=== PATIENT | female | born 1945 | race Caucasian/White ===

== ENCOUNTER → 2017-07-21 | Outpatient (CLI) | payer MEDICARE, OTHER ==
[~2017-07-21] MED LIST: AMIT25 PO; ASPI81CH PO; BENZ100A PO; CALCAVITD PO; CELE100 PO; CHOL10002; CLOP75 PO; CRAN-MAX500 MG PO; CYAN1000 PO; CYCL10 PO; DOCU100 PO; DULO30 PO; DULO60; DULO60 PO; Desyrel50 MG; FAMO20 PO; FERR325 PO; FURO40 PO; GABA300 PO; GABA600 PO; GUAI600T33 PO; HYDACE5 PO; IRON SULFATE PO; LEVFLO500 PO; LEVSOD50 PO; METO25ER PO; MULVITB&C PO; NITR.4SL SL; NITR100CA PO; NYST100SU MT; OMEP20ER PO; OMEP40CA12 PO; PONARIS; POTA10T PO; POTASSIUM GLUCONATE; POTCHL20ER PO; RAMI5 PO; RANI150 PO; SIMV40 PO; TEMA15 PO; TORSE20 PO; TRAZ50 PO; VENL75ER PO; Vitamin C100 M1 PO; Vitamin C1000 M1 PO; [UNRECOGNIZED DRUG - CODE] PO
== END | disposition home or self-care (01) ==
LOC: LAB 14:37
DX: L03.116 Cellulitis of left lower limb (principal)
CPT/HCPCS: 87070; 87077; 87147; 87186; 87205

== ENCOUNTER → 2017-08-19 | Outpatient (CLI) | payer MEDICARE, OTHER | END | disposition home or self-care (01) | LOC: LAB 11:06 → LAB SHORT 11:06 | DX: L03.116 Cellulitis of left lower limb (principal) | CPT/HCPCS: 87070; 87077; 87147; 87186; 87205 ==

== ENCOUNTER → 2017-09-10 | Outpatient (CLI) | payer MEDICARE, OTHER ==
[2017-09-10 13:58] LABS: Source, Urine Clean Catch
[2017-09-10 14:38] LABS: Bilirubin, Urine Neg (Neg); Blood, Urine 2+ (Neg); Glucose Qualitative, Urine Neg (Neg); Ketones, Urine Neg (Neg); Leukocyte Esterase, Urine 3+ (Neg); Nitrite, Urine Neg (Neg); Protein, Urine Neg (Neg); Urobilinogen, Urine NORM (Normal)
[2017-09-10 14:50] LABS: Appearance, Urine Clear (Clear); Bacteria Not Seen /hpf; Squamous Epithelial Cells Not Seen /hpf (Few)
== END | disposition home or self-care (01) ==
LOC: LAB 13:32 → LAB FUT 09-09 17:40 → EDSTATUS 09-09 17:40
PROVIDERS: Obstetrics & Gynecology Female Pelvic Medicine and Reconstructive Surgery
DX: N39.0 Urinary tract infection, site not specified (principal); R30.0 Dysuria
CPT/HCPCS: 81015

== ENCOUNTER → 2017-10-13 | Outpatient (CLI) | payer MEDICARE, OTHER | END | disposition home or self-care (01) | LOC: LAB SHORT 11:36 → LAB 11:36 | DX: L03.116 Cellulitis of left lower limb (principal) | CPT/HCPCS: 87070; 87077; 87147; 87186; 87205 ==

== ENCOUNTER → 2017-10-27 | Outpatient (CLI) | payer MEDICARE, OTHER | END | disposition home or self-care (01) | LOC: LAB SHORT 10:15 → LAB 10:15 → LAB FUT 10-27 11:00 → EDSTATUS 10-27 11:00 | DX: L03.116 Cellulitis of left lower limb (principal) | CPT/HCPCS: 87070; 87077; 87186; 87205 ==

== ENCOUNTER 2017-11-01 12:30 | Day surgery (SDC) | payer MEDICARE, OTHER | END 2017-11-01 15:15 | disposition home or self-care (01) | LOC: WOUND 12:30 | PROC: 0HBLXZZ Excision of Left Lower Leg Skin, External Approach (ICD-10-PCS; principal; 2017-11-01) | DX: L97.822 Non-pressure chronic ulcer of other part of left lower leg with fat layer exposed (principal); I87.2 Venous insufficiency (chronic) (peripheral); N28.9 Disorder of kidney and ureter, unspecified; D50.9 Iron deficiency anemia, unspecified; I11.0 Hypertensive heart disease with heart failure; I50.9 Heart failure, unspecified; R60.0 Localized edema | CPT/HCPCS: G0463 ==

== ENCOUNTER 2017-11-08 13:00 | Day surgery (SDC) | payer MEDICARE, OTHER | END 2017-11-08 16:01 | disposition home or self-care (01) | LOC: WOUND 13:00 | DX: Z48.00 Encounter for change or removal of nonsurgical wound dressing (principal); L97.819 Non-pressure chronic ulcer of other part of right lower leg with unspecified severity; I87.2 Venous insufficiency (chronic) (peripheral); I83.009 Varicose veins of unspecified lower extremity with ulcer of unspecified site; N28.9 Disorder of kidney and ureter, unspecified; D50.9 Iron deficiency anemia, unspecified; I50.9 Heart failure, unspecified; G60.9 Hereditary and idiopathic neuropathy, unspecified; R60.0 Localized edema | CPT/HCPCS: G0463 ==

== ENCOUNTER 2017-11-15 14:00 | Day surgery (SDC) | payer MEDICARE, OTHER | END 2017-11-15 16:45 | disposition home or self-care (01) | LOC: WOUND 14:00 | DX: I83.028 Varicose veins of left lower extremity with ulcer other part of lower leg (principal); L97.822 Non-pressure chronic ulcer of other part of left lower leg with fat layer exposed; I87.2 Venous insufficiency (chronic) (peripheral); N28.9 Disorder of kidney and ureter, unspecified; D50.9 Iron deficiency anemia, unspecified; I11.0 Hypertensive heart disease with heart failure; I50.9 Heart failure, unspecified; G60.9 Hereditary and idiopathic neuropathy, unspecified; R60.0 Localized edema; I70.209 Unspecified atherosclerosis of native arteries of extremities, unspecified extremity; L08.9 Local infection of the skin and subcutaneous tissue, unspecified; B96.5 Pseudomonas (aeruginosa) (mallei) (pseudomallei) as the cause of diseases classified elsewhere | CPT/HCPCS: G0463 ==

== ENCOUNTER → 2018-01-13 | Outpatient (CLI) | payer MEDICARE, OTHER | LOC: LAB SHORT 08:00 → LAB 08:00 | DX: L03.116 Cellulitis of left lower limb (principal) | CPT/HCPCS: 87070; 87075; 87077; 87147; 87186; 87205 ==

== ENCOUNTER 2018-01-27 07:30 | Day surgery (SDC) | payer MEDICARE, OTHER | END 2018-01-27 09:50 | disposition home or self-care (01) | LOC: WOUND | DX: L97.822 Non-pressure chronic ulcer of other part of left lower leg with fat layer exposed (principal); I87.2 Venous insufficiency (chronic) (peripheral); M81.0 Age-related osteoporosis without current pathological fracture; E78.5 Hyperlipidemia, unspecified; I50.32 Chronic diastolic (congestive) heart failure | CPT/HCPCS: 87070; 87075; 87205; G0463 ==

== ENCOUNTER 2018-01-28 08:00 | Day surgery (SDC) | payer MEDICARE, OTHER | END 2018-01-28 09:55 | disposition home health service (06) | LOC: WOUND 08:00 | DX: L97.522 Non-pressure chronic ulcer of other part of left foot with fat layer exposed (principal); I87.2 Venous insufficiency (chronic) (peripheral); L92.8 Other granulomatous disorders of the skin and subcutaneous tissue; M21.42 Flat foot [pes planus] (acquired), left foot; M21.6X2 Other acquired deformities of left foot; M81.0 Age-related osteoporosis without current pathological fracture; E78.5 Hyperlipidemia, unspecified; I50.32 Chronic diastolic (congestive) heart failure | CPT/HCPCS: G0463 ==

== ENCOUNTER 2018-02-03 00:02 | Day surgery (SDC) | payer MEDICARE, OTHER | END 2018-02-03 22:44 | disposition home or self-care (01) | LOC: WOUND 00:02 | DX: L97.522 Non-pressure chronic ulcer of other part of left foot with fat layer exposed (principal); I87.2 Venous insufficiency (chronic) (peripheral); M21.6X2 Other acquired deformities of left foot | CPT/HCPCS: G0463 ==

== ENCOUNTER 2018-02-09 | Day surgery (SDC) | payer MEDICARE, OTHER | END 2018-02-09 22:42 | disposition home or self-care (01) | LOC: WOUND | PROC: 0HBLXZZ Excision of Left Lower Leg Skin, External Approach (ICD-10-PCS; principal; 2018-02-09) | DX: I87.2 Venous insufficiency (chronic) (peripheral) (principal); L97.822 Non-pressure chronic ulcer of other part of left lower leg with fat layer exposed; M21.42 Flat foot [pes planus] (acquired), left foot; M21.6X2 Other acquired deformities of left foot; M81.0 Age-related osteoporosis without current pathological fracture; E78.5 Hyperlipidemia, unspecified; I50.32 Chronic diastolic (congestive) heart failure ==

== ENCOUNTER 2018-04-28 00:14 | Day surgery (SDC) | payer MEDICARE, OTHER | END 2018-04-28 22:44 | disposition home or self-care (01) | LOC: WOUND 00:14 | DX: L97.822 Non-pressure chronic ulcer of other part of left lower leg with fat layer exposed (principal); I87.2 Venous insufficiency (chronic) (peripheral) | CPT/HCPCS: G0463 ==

== ENCOUNTER 2018-05-05 08:45 | Day surgery (SDC) | payer MEDICARE, OTHER | END 2018-05-05 23:06 | disposition home or self-care (01) | LOC: WOUND 08:45 | DX: L97.822 Non-pressure chronic ulcer of other part of left lower leg with fat layer exposed (principal); I87.2 Venous insufficiency (chronic) (peripheral) | CPT/HCPCS: G0463 ==

== ENCOUNTER 2018-05-12 08:17 | Day surgery (SDC) | payer MEDICARE, OTHER | END 2018-05-12 22:46 | disposition home or self-care (01) | LOC: WOUND 08:17 | DX: L97.822 Non-pressure chronic ulcer of other part of left lower leg with fat layer exposed (principal); I87.2 Venous insufficiency (chronic) (peripheral) ==

== ENCOUNTER 2018-05-19 08:21 | Day surgery (SDC) | payer MEDICARE, OTHER | END 2018-05-19 22:45 | disposition home or self-care (01) | LOC: WOUND 08:21 | DX: L97.522 Non-pressure chronic ulcer of other part of left foot with fat layer exposed (principal); I87.2 Venous insufficiency (chronic) (peripheral) | CPT/HCPCS: G0463 ==

== ENCOUNTER 2018-05-26 00:28 | Day surgery (SDC) | payer MEDICARE, OTHER | END 2018-05-26 23:56 | disposition home or self-care (01) | LOC: WOUND 00:28 | PROC: 0HBLXZZ Excision of Left Lower Leg Skin, External Approach (ICD-10-PCS; principal; 2018-05-26) | DX: L97.822 Non-pressure chronic ulcer of other part of left lower leg with fat layer exposed (principal); I87.2 Venous insufficiency (chronic) (peripheral) ==

== ENCOUNTER 2018-06-02 08:45 | Day surgery (SDC) | payer MEDICARE, OTHER | END 2018-06-02 22:50 | disposition home or self-care (01) | LOC: WOUND 08:45 | DX: L97.822 Non-pressure chronic ulcer of other part of left lower leg with fat layer exposed (principal); I87.2 Venous insufficiency (chronic) (peripheral) | CPT/HCPCS: G0463 ==

== ENCOUNTER 2018-06-16 08:22 | Day surgery (SDC) | payer MEDICARE, OTHER | END 2018-06-16 22:47 | disposition home or self-care (01) | LOC: WOUND 08:22 | DX: I83.025 Varicose veins of left lower extremity with ulcer other part of foot (principal); L97.522 Non-pressure chronic ulcer of other part of left foot with fat layer exposed; I87.2 Venous insufficiency (chronic) (peripheral); M21.42 Flat foot [pes planus] (acquired), left foot; M21.6X2 Other acquired deformities of left foot; M81.0 Age-related osteoporosis without current pathological fracture; E78.5 Hyperlipidemia, unspecified; I50.32 Chronic diastolic (congestive) heart failure ==

== ENCOUNTER 2018-06-23 00:27 | Day surgery (SDC) | payer MEDICARE, OTHER | END 2018-06-23 22:44 | disposition home health service (06) | LOC: WOUND 00:27 | DX: I83.025 Varicose veins of left lower extremity with ulcer other part of foot (principal); L97.522 Non-pressure chronic ulcer of other part of left foot with fat layer exposed; I83.91 Asymptomatic varicose veins of right lower extremity; M21.42 Flat foot [pes planus] (acquired), left foot; M21.6X2 Other acquired deformities of left foot; M81.0 Age-related osteoporosis without current pathological fracture; E78.5 Hyperlipidemia, unspecified; I50.32 Chronic diastolic (congestive) heart failure ==

== ENCOUNTER 2018-06-30 00:12 | Day surgery (SDC) | payer MEDICARE, OTHER | END 2018-06-30 22:35 | disposition home or self-care (01) | LOC: WOUND 00:12 | DX: L97.822 Non-pressure chronic ulcer of other part of left lower leg with fat layer exposed (principal); I87.2 Venous insufficiency (chronic) (peripheral) ==

== ENCOUNTER 2018-07-21 00:30 | Day surgery (SDC) | payer MEDICARE, OTHER | END 2018-07-21 12:00 | disposition home or self-care (01) | LOC: WOUND 00:30 | DX: I83.028 Varicose veins of left lower extremity with ulcer other part of lower leg (principal); L97.822 Non-pressure chronic ulcer of other part of left lower leg with fat layer exposed; I87.2 Venous insufficiency (chronic) (peripheral); I50.9 Heart failure, unspecified; I73.9 Peripheral vascular disease, unspecified; D64.9 Anemia, unspecified; M19.90 Unspecified osteoarthritis, unspecified site ==

== ENCOUNTER 2018-07-28 00:38 | Day surgery (SDC) | payer MEDICARE, OTHER | END 2018-07-28 12:00 | disposition home or self-care (01) | LOC: WOUND 00:38 | DX: L97.822 Non-pressure chronic ulcer of other part of left lower leg with fat layer exposed (principal); I87.2 Venous insufficiency (chronic) (peripheral); I50.32 Chronic diastolic (congestive) heart failure; E78.5 Hyperlipidemia, unspecified ==

== ENCOUNTER 2018-08-04 00:07 | Day surgery (SDC) | payer MEDICARE, OTHER | END 2018-08-04 22:58 | disposition home or self-care (01) | LOC: WOUND 00:07 | DX: I87.2 Venous insufficiency (chronic) (peripheral) (principal); L97.822 Non-pressure chronic ulcer of other part of left lower leg with fat layer exposed; I73.9 Peripheral vascular disease, unspecified; D64.9 Anemia, unspecified; I50.9 Heart failure, unspecified; M19.90 Unspecified osteoarthritis, unspecified site | CPT/HCPCS: G0463 ==

== ENCOUNTER 2018-08-11 01:06 | Day surgery (SDC) | payer MEDICARE, OTHER | END 2018-08-11 22:45 | disposition home or self-care (01) | LOC: WOUND 01:06 | DX: I83.028 Varicose veins of left lower extremity with ulcer other part of lower leg (principal); L97.822 Non-pressure chronic ulcer of other part of left lower leg with fat layer exposed; D64.9 Anemia, unspecified; I73.9 Peripheral vascular disease, unspecified; M19.90 Unspecified osteoarthritis, unspecified site; F41.9 Anxiety disorder, unspecified; I50.32 Chronic diastolic (congestive) heart failure; E78.5 Hyperlipidemia, unspecified; M21.6X2 Other acquired deformities of left foot; M21.42 Flat foot [pes planus] (acquired), left foot | CPT/HCPCS: Q4196 ==

== ENCOUNTER 2018-08-18 08:45 | Day surgery (SDC) | payer MEDICARE, OTHER | END 2018-08-18 23:09 | disposition home or self-care (01) | LOC: WOUND 08:45 | DX: I87.2 Venous insufficiency (chronic) (peripheral) (principal); L97.822 Non-pressure chronic ulcer of other part of left lower leg with fat layer exposed; D64.9 Anemia, unspecified; I50.9 Heart failure, unspecified; I73.9 Peripheral vascular disease, unspecified; M19.90 Unspecified osteoarthritis, unspecified site | CPT/HCPCS: Q4196 ==

== ENCOUNTER 2018-08-25 08:00 | Day surgery (SDC) | payer MEDICARE, OTHER | END 2018-08-25 22:43 | disposition home or self-care (01) | LOC: WOUND 08:00 | DX: I87.2 Venous insufficiency (chronic) (peripheral) (principal); L97.822 Non-pressure chronic ulcer of other part of left lower leg with fat layer exposed; I50.32 Chronic diastolic (congestive) heart failure; D64.9 Anemia, unspecified; E78.5 Hyperlipidemia, unspecified; M19.90 Unspecified osteoarthritis, unspecified site ==

== ENCOUNTER 2018-08-31 09:05 | Day surgery (SDC) | payer MEDICARE, OTHER ==
[~2018-08-31] VITALS: Ht 170.2 cm; Wt 77.0 kg
--- NOTE | 2018-08-31 09:54 | NUR ---
PT BROUGHT BACK TO EXAM ROOM FOR EVALUATION. VITAL SIGNS TAKEN. DR HICKMAN MADE AWARE PT HAS BEEN WITH FEVER AND VOMITING SINCE WEDNESDAY. TEMP TODAY IS 99.7 DEGREES. 115-108 HR. PT REPORTS INCREASED COUGHING THE PAST FEW DAYS. PER DR HICKMAN VERBAL ORDERS, IV STARTED, NORMAL SALINE 500CC IV BOLUS STARTED. WE WILL PREP PATIENT FOR SCLEROTHERAPY OF L LEG ONLY TODAY. CONTINOUS CARDIAC MONITORING IN PLACE.
--- NOTE | 2018-08-31 12:15 | NUR ---
PT DENIES NEEDS. L LEG WRAPPED WITH KERLEX AND COBAN AND PRESSURE STOCKING APPLIED. TOLERATES WELL. VSS. NADN. PT DRESSES SELF. IV DC'D. CATH INTACT. PRESSURE DSG IN PLACE. NO BLEEDING NOTED. PT AMBULATES WITH WALKER TO RESTROOM AND BACK WITHOUT DIFF. PT ESCORTED OUT BY ESCORT/ WC.
== END 2018-08-31 12:10 | disposition home or self-care (01) ==
LOC: MHTC 09:05
DX: I87.2 Venous insufficiency (chronic) (peripheral) (principal); I83.029 Varicose veins of left lower extremity with ulcer of unspecified site; L97.929 Non-pressure chronic ulcer of unspecified part of left lower leg with unspecified severity; Z88.5 Allergy status to narcotic agent; Z88.8 Allergy status to other drugs, medicaments and biological substances; Z88.1 Allergy status to other antibiotic agents; Z91.040 Latex allergy status; Z91.018 Allergy to other foods; Z79.899 Other long term (current) drug therapy
CPT/HCPCS: 36466; 99152; 99153; J3010; J7040

== ENCOUNTER 2018-09-01 08:45 | Day surgery (SDC) | payer MEDICARE, OTHER | END 2018-09-01 22:55 | disposition home or self-care (01) | LOC: WOUND 08:45 | DX: I87.2 Venous insufficiency (chronic) (peripheral) (principal); L97.822 Non-pressure chronic ulcer of other part of left lower leg with fat layer exposed; L97.522 Non-pressure chronic ulcer of other part of left foot with fat layer exposed; I50.32 Chronic diastolic (congestive) heart failure; K21.9 Gastro-esophageal reflux disease without esophagitis; E78.5 Hyperlipidemia, unspecified; D64.9 Anemia, unspecified | CPT/HCPCS: G0463 ==

== ENCOUNTER 2018-09-08 08:45 | Day surgery (SDC) | payer MEDICARE, OTHER | END 2018-09-08 22:42 | disposition home or self-care (01) | LOC: WOUND 08:45 | DX: I87.2 Venous insufficiency (chronic) (peripheral) (principal); L97.821 Non-pressure chronic ulcer of other part of left lower leg limited to breakdown of skin; L97.522 Non-pressure chronic ulcer of other part of left foot with fat layer exposed; I50.32 Chronic diastolic (congestive) heart failure; E78.5 Hyperlipidemia, unspecified; D64.9 Anemia, unspecified; M19.90 Unspecified osteoarthritis, unspecified site | CPT/HCPCS: Q4196 ==

== ENCOUNTER 2018-09-14 08:51 | Day surgery (SDC) | payer MEDICARE, OTHER ==
[~2018-09-14] VITALS: Ht 170.2 cm; Wt 77.0 kg
[2018-09-14] MEDS ORDERED: TRIM100 PO (09:38)
[2018-09-14] MEDS ORDERED: CELE200 PO (09:39)
[2018-09-14] MEDS ORDERED: VENL150ER PO (09:45)
--- NOTE | 2018-09-14 10:09 | NUR ---
CALL LIGHT IN REACH.
--- NOTE | 2018-09-14 11:28 | NUR ---
PT TOLERATED PHELBECTOMY TO RLE WELL SCLEROTHERAPY BILAT LE WELL.
--- NOTE | 2018-09-14 11:38 | NUR ---
PT'S RLE AND LLE WRAPPED WITH GAUZE, COBAN TO THIGH-HIGH. KNEE-HIGH COMPRESSION STOCKING PLACED ON RLE. PABLO HOSE PLACED ON LLE. FULL REPORT PROVIDED TO NOHEMY KERR TO ASSUME CARE OF PT.
--- NOTE | 2018-09-14 12:19 | NUR ---
PT VERBALIZED UNDERSTANDING OF D/C INSTRUCTIONS. IV REMOVED FROM RAC WITH CATH INTACT. PRESSURE DRESSING APPLIED. BILATERAL LE WRAPPED AND STALKINGS APPLIED. PT AMBULATES TO RESTROOM WITH STEADY GAIT USING HER FWW. ARRIVES TO DRIVE PT HOME, DISPO PAPERWORK PROVIDED IN [facility] FOL[facility]. PT TAKEN OUT TO PRIVATE VEHICLE VIA W/C WITH WING.
== END 2018-09-15 22:42 | disposition home or self-care (01) ==
LOC: MHTC 08:51
DX: I87.2 Venous insufficiency (chronic) (peripheral) (principal); Z88.5 Allergy status to narcotic agent; Z91.018 Allergy to other foods; Z88.8 Allergy status to other drugs, medicaments and biological substances; Z91.040 Latex allergy status; Z88.1 Allergy status to other antibiotic agents; Z79.899 Other long term (current) drug therapy
CPT/HCPCS: 36466; 37765; 99152; 99153; J1644; J2250; J3010; J7030; J7040

== ENCOUNTER 2018-09-22 00:20 | Day surgery (SDC) | payer MEDICARE, OTHER ==
[~2018-09-22 00:20] MED LIST changes: +CELE200 PO; +TRIM100 PO; +VENL150ER PO
== END 2018-09-22 22:41 | disposition home or self-care (01) ==
LOC: WOUND 00:20
DX: L97.822 Non-pressure chronic ulcer of other part of left lower leg with fat layer exposed (principal); L97.522 Non-pressure chronic ulcer of other part of left foot with fat layer exposed; I87.2 Venous insufficiency (chronic) (peripheral); I73.9 Peripheral vascular disease, unspecified; I50.9 Heart failure, unspecified; D64.9 Anemia, unspecified
CPT/HCPCS: Q4196

== ENCOUNTER 2018-09-29 00:38 | Day surgery (SDC) | payer MEDICARE, OTHER | END 2018-09-29 22:55 | disposition home or self-care (01) | LOC: WOUND 00:38 | DX: L97.822 Non-pressure chronic ulcer of other part of left lower leg with fat layer exposed (principal); L97.522 Non-pressure chronic ulcer of other part of left foot with fat layer exposed; I87.2 Venous insufficiency (chronic) (peripheral); I50.32 Chronic diastolic (congestive) heart failure; K21.9 Gastro-esophageal reflux disease without esophagitis; F32.9 Major depressive disorder, single episode, unspecified; E78.5 Hyperlipidemia, unspecified; M81.0 Age-related osteoporosis without current pathological fracture; D64.9 Anemia, unspecified | CPT/HCPCS: Q4196 ==

== ENCOUNTER 2018-10-06 08:45 | Day surgery (SDC) | payer MEDICARE, OTHER | END 2018-10-06 22:46 | disposition home or self-care (01) | LOC: WOUND 08:45 | DX: L97.821 Non-pressure chronic ulcer of other part of left lower leg limited to breakdown of skin (principal); I87.2 Venous insufficiency (chronic) (peripheral); I73.9 Peripheral vascular disease, unspecified; I50.32 Chronic diastolic (congestive) heart failure; E78.5 Hyperlipidemia, unspecified; D64.9 Anemia, unspecified; M21.42 Flat foot [pes planus] (acquired), left foot; M21.6X2 Other acquired deformities of left foot; M81.0 Age-related osteoporosis without current pathological fracture ==

== ENCOUNTER 2018-10-13 08:30 | Day surgery (SDC) | payer MEDICARE, OTHER | END 2018-10-13 22:38 | disposition home or self-care (01) | LOC: WOUND 08:30 | DX: L97.829 Non-pressure chronic ulcer of other part of left lower leg with unspecified severity (principal); L97.522 Non-pressure chronic ulcer of other part of left foot with fat layer exposed; I87.2 Venous insufficiency (chronic) (peripheral); M19.90 Unspecified osteoarthritis, unspecified site | CPT/HCPCS: G0463 ==

== ENCOUNTER 2018-10-20 08:45 | Day surgery (SDC) | payer MEDICARE, OTHER | END 2018-10-20 23:21 | disposition home or self-care (01) | LOC: WOUND 08:45 | DX: L97.521 Non-pressure chronic ulcer of other part of left foot limited to breakdown of skin (principal); I87.2 Venous insufficiency (chronic) (peripheral); I73.9 Peripheral vascular disease, unspecified; M19.90 Unspecified osteoarthritis, unspecified site ==

== ENCOUNTER 2018-10-27 08:45 | Day surgery (SDC) | payer MEDICARE, OTHER | END 2018-10-27 22:43 | disposition home or self-care (01) | LOC: WOUND 08:45 | DX: L97.522 Non-pressure chronic ulcer of other part of left foot with fat layer exposed (principal); I87.2 Venous insufficiency (chronic) (peripheral); I73.9 Peripheral vascular disease, unspecified; I50.32 Chronic diastolic (congestive) heart failure; D64.9 Anemia, unspecified; E78.5 Hyperlipidemia, unspecified | CPT/HCPCS: G0463 ==

== ENCOUNTER 2018-11-03 08:45 | Day surgery (SDC) | payer MEDICARE, OTHER | END 2018-11-03 23:03 | disposition home or self-care (01) | LOC: WOUND 08:45 | DX: L97.522 Non-pressure chronic ulcer of other part of left foot with fat layer exposed (principal); L97.829 Non-pressure chronic ulcer of other part of left lower leg with unspecified severity; I73.9 Peripheral vascular disease, unspecified; I87.2 Venous insufficiency (chronic) (peripheral); I50.9 Heart failure, unspecified; D64.9 Anemia, unspecified | CPT/HCPCS: G0463 ==

== ENCOUNTER 2018-11-17 08:45 | Day surgery (SDC) | payer MEDICARE, OTHER | END 2018-11-17 22:52 | disposition home or self-care (01) | LOC: WOUND 08:45 | DX: I83.028 Varicose veins of left lower extremity with ulcer other part of lower leg (principal); L97.821 Non-pressure chronic ulcer of other part of left lower leg limited to breakdown of skin; I87.2 Venous insufficiency (chronic) (peripheral); Z48.00 Encounter for change or removal of nonsurgical wound dressing | CPT/HCPCS: G0463 ==

== ENCOUNTER 2018-11-24 00:15 | Day surgery (SDC) | payer MEDICARE, OTHER | END 2018-11-24 22:49 | disposition home or self-care (01) | LOC: WOUND 00:15 | DX: L97.522 Non-pressure chronic ulcer of other part of left foot with fat layer exposed (principal); L97.919 Non-pressure chronic ulcer of unspecified part of right lower leg with unspecified severity; I73.9 Peripheral vascular disease, unspecified; I87.2 Venous insufficiency (chronic) (peripheral); I50.9 Heart failure, unspecified; D64.9 Anemia, unspecified | CPT/HCPCS: G0463 ==

== ENCOUNTER 2018-11-29 11:50 | Day surgery (SDC) | payer MEDICARE, OTHER ==
[~2018-11-29] VITALS: Ht 170.2 cm; Wt 76.4 kg
[2018-11-29] MEDS ORDERED: SSKI1 GM/1 ML PO (12:48)
== END 2018-11-29 22:43 | disposition home or self-care (01) ==
LOC: MHTC 11:50
PROC: 3E033TZ Introduction of Destructive Agent into Peripheral Vein, Percutaneous Approach (ICD-10-PCS; principal; 2018-11-29)
PROC: 06DY3ZZ Extraction of Lower Vein, Percutaneous Approach (ICD-10-PCS; principal; 2018-11-29)
DX: I87.2 Venous insufficiency (chronic) (peripheral) (principal)
CPT/HCPCS: 36471; 99152; J1644; J2250; J3010; J7040

== ENCOUNTER 2018-12-08 00:04 | Day surgery (SDC) | payer MEDICARE, OTHER ==
[~2018-12-08 00:04] MED LIST changes: +SSKI1 GM/1 ML PO
== END 2018-12-08 22:41 | disposition home or self-care (01) ==
LOC: WOUND 00:04
DX: L97.522 Non-pressure chronic ulcer of other part of left foot with fat layer exposed (principal); I87.2 Venous insufficiency (chronic) (peripheral)
CPT/HCPCS: G0463

== ENCOUNTER 2018-12-22 08:29 | Day surgery (SDC) | payer MEDICARE, OTHER | END 2018-12-22 23:10 | disposition home or self-care (01) | LOC: WOUND 08:29 | DX: L97.522 Non-pressure chronic ulcer of other part of left foot with fat layer exposed (principal); I87.2 Venous insufficiency (chronic) (peripheral) | CPT/HCPCS: G0463 ==

== ENCOUNTER 2019-03-19 13:28 | Inpatient (IN) | payer MEDICARE, OTHER ==
[~2019-03-19] VITALS: Ht 170.2 cm; Wt 71.1 kg
[~2019-03-19 13:28] MED LIST changes: +ASCO500 PO; -Vitamin C1000 M1 PO
[2019-03-19] MEDS ORDERED: FERRO-TIME325 MG PO (14:19)
[2019-03-19] MEDS ORDERED: URIBEL CAPSULE1 EACH PO (14:19)
[2019-03-19] MEDS ORDERED: GABA300 PO (14:20)
[2019-03-19] MEDS ORDERED: Potassium Chlo20 ME1 PO (14:20)
[2019-03-19] MEDS ORDERED: VENLAFAXINE HCL75 MG PO (14:21)
[2019-03-19] MEDS ORDERED: Synthroid88 MCG PO (14:22)
[2019-03-19] MEDS ORDERED: Fish Oil 10001000 MG PO (14:22)
[2019-03-19] MEDS ORDERED: FURO40 PO (14:23)
[2019-03-19] MEDS ORDERED: Cyclobenzaprine5 MG PO (14:24)
[2019-03-19 14:41] LABS: BASOPHILS ABSOLUTE AUTO 0.04 K/mm3 (0.00-0.23); BASOPHILS PERCENT AUTO 1 % (0-2); EOSINOPHILS ABSOLUTE AUTO 0.08 K/mm3 (0.00-0.68); EOSINOPHILS PERCENT AUTO 1 % (0-6); Hematocrit 36.7 % (33.0-51.0); Hemoglobin 12.6 g/dL (11.5-16.0); IMMATURE GRAN ABSOLUTE AUTO 0.06 K/mm3 (0.00-0.10); IMMATURE GRAN PERCENT AUTO 1 % (0-1); LYMPHOCYTES PERCENT AUTO 18 % (21-46); MONOCYTES ABSOLUTE AUTO 0.84 K/mm3 (0.16-1.47); MONOCYTES PERCENT AUTO 10 % (4-13); Mean Corpuscular HGB Conc 34.3 g/dL (31.5-36.5); Mean Corpuscular Volume 105 fL (80-100); Mean Platelet Volume 9.4 fL (9.1-12.4); NEUTROPHILS ABSOLUTE AUTO 6.06 K/mm3 (1.96-9.15); NEUTROPHILS PERCENT AUTO 71 % (41-73); Platelet Count 217 K/mm3 (150-400); RDW Coefficient Variation 12.7 % (11.7-14.2); RDW Standard Deviation 48.9 fL (35.1-46.3); White Blood Cell Count 8.58 K/mm3 (4.00-11.30)
[2019-03-19 15:01] LABS: Acetaminophen, Random <2.0 ug/mL (10.0-30.0); Alanine Aminotransfer (ALT/SGP 39 U/L (12-78); Albumin, Blood 3.4 g/dL (3.4-5.0); Albumin/Globulin Ratio 1.1 (0.8-1.8); Alk Phos 160 U/L (50-136); Anion Gap 8 mmol/L (6-16); Aspartate Aminotrans (AST/SGOT 41 U/L (12-37); Bilirubin, Total 0.3 mg/dL (0.1-1.0); Blood Urea Nitrogen 20 mg/dL (8-24); CO2, Blood 25 mmol/L (21-32); Chloride, Blood 106 mmol/L (98-108); Creatinine, Blood 0.91 mg/dL (0.40-1.00); Ethanol (Alcohol), Blood, Med <3 mg/dL; Globulin, Blood 3.2 g/dL (2.2-4.0); Glomerular Filtration Rate >60 (60-); Glucose, Blood 97 mg/dL (70-99); Potassium, Blood 3.9 mmol/L (3.5-5.5); Salicylate 3.3 mg/dL (2.8-20.0); Sodium, Blood 139 mmol/L (136-145); Total Protein, Blood 6.6 g/dL (6.4-8.2)
[2019-03-19 15:53] LABS: Source, Urine Clean Catch
[2019-03-19 15:56] LABS: Bilirubin, Urine Neg (Neg); Blood, Urine 4+ (Neg); Glucose Qualitative, Urine Neg (Neg); Ketones, Urine 1+ (Neg); Leukocyte Esterase, Urine 2+ (Neg); Nitrite, Urine Pos (Neg); Protein, Urine 2+ (Neg); Specific Gravity, Urine 1.015 (1.003-1.022); Urobilinogen, Urine NORM (Normal)
[2019-03-19 15:59] LABS: Appearance, Urine Hazy (Clear); Color, Urine Yellow (P-Yellow)
[2019-03-19 16:01] LABS: Amorphous Mod (0-Heavy); Bacteria Many /hpf; Mucus Light (0-Heavy); Squamous Epithelial Cells Few /hpf (Few)
[2019-03-19 16:06] LABS: U Amphetamine Screen Not Detected; U Barbituate Screen Not Detected; U Benzodiazapine Screen Not Detected; U Buprenorphine Screen Not Detected; U Cannabinoids Screen Not Detected; U Cocaine Screen Not Detected; U Methadone Screen Not Detected; U Methamphetamine Screen Not Detected; U Opiates Screen Not Detected; U Oxycodone Screen Not Detected; U Phencyclidine Screen Not Detected; U Propoxyphene Screen Not Detected
[2019-03-20 04:24] LABS: BASOPHILS ABSOLUTE AUTO 0.04 K/mm3 (0.00-0.23); BASOPHILS PERCENT AUTO 1 % (0-2); EOSINOPHILS PERCENT AUTO 1 % (0-6); Hematocrit 37.8 % (33.0-51.0); Hemoglobin 12.7 g/dL (11.5-16.0); IMMATURE GRAN ABSOLUTE AUTO 0.05 K/mm3 (0.00-0.10); IMMATURE GRAN PERCENT AUTO 1 % (0-1); LYMPHOCYTES ABSOLUTE AUTO 1.27 K/mm3 (0.84-5.20); LYMPHOCYTES PERCENT AUTO 18 % (21-46); MONOCYTES ABSOLUTE AUTO 0.83 K/mm3 (0.16-1.47); MONOCYTES PERCENT AUTO 12 % (4-13); Mean Corpuscular HGB Conc 33.6 g/dL (31.5-36.5); Mean Corpuscular Volume 107 fL (80-100); Mean Platelet Volume 9.4 fL (9.1-12.4); NEUTROPHILS ABSOLUTE AUTO 4.66 K/mm3 (1.96-9.15); NEUTROPHILS PERCENT AUTO 67 % (41-73); Platelet Count 220 K/mm3 (150-400); RDW Coefficient Variation 12.9 % (11.7-14.2); RDW Standard Deviation 51.4 fL (35.1-46.3); Red Blood Cell Count 3.53 M/mm3 (3.80-5.20); White Blood Cell Count 6.95 K/mm3 (4.00-11.30)
[2019-03-20 04:44] LABS: Alanine Aminotransfer (ALT/SGP 39 U/L (12-78); Albumin, Blood 3.1 g/dL (3.4-5.0); Albumin/Globulin Ratio 0.9 (0.8-1.8); Alk Phos 153 U/L (50-136); Anion Gap 7 mmol/L (6-16); Aspartate Aminotrans (AST/SGOT 33 U/L (12-37); Bilirubin, Total 0.3 mg/dL (0.1-1.0); Blood Urea Nitrogen 19 mg/dL (8-24); Bun/Creatinine Ratio 20.9 (12.0-20.0); CO2, Blood 25 mmol/L (21-32); Calcium, Blood 9.4 mg/dL (8.5-10.1); Chloride, Blood 112 mmol/L (98-108); Creatinine, Blood 0.91 mg/dL (0.40-1.00); Globulin, Blood 3.5 g/dL (2.2-4.0); Glomerular Filtration Rate >60 (60-); Glucose, Blood 122 mg/dL (70-99); Potassium, Blood 4.1 mmol/L (3.5-5.5); Sodium, Blood 144 mmol/L (136-145); Total Protein, Blood 6.6 g/dL (6.4-8.2)
--- NOTE | 2019-03-20 05:22 | NUR ---
SHIFT SUMMARY PT HAS SLEPT MUCH OF THE SHIFT. B52 AND 20 MG ZYPREXA GIVEN IN ED BEFORE ADMISSION. PT VERY DROWSY FOLLOWING. PT ABLE TO ANSWER ORIENTATION QUESTIONS. SHE KNEW WHO SHE WAS AND WHERE SHE WAS. SHE DID NOT REMEMBER ANY SITUATION HAPPENING AT HOME THAT WOULD HAVE BROUGHT HER TO THE ED. PT DID HAVE MOMENTS OF CONFUSION THROUGH HER DROWSINESS LAST NIGHT, TRYING TO GET OUT OF BED AND INSISTING THAT SHE HAD TO GO TO THE "LIVING ROOM" EVEN AFTER EXPLAINING THAT SHE WAS IN THE HOSPITAL. PT AWAKE THIS AM. PLEASANT. STATED THAT SHE HAS BEEN TAKING HER MEDICATION AND THAT SHE "DOESN'T KNOW WHAT HE'S TALKING ABOUT" REGARDING HER AND HIS BELIEF THAT SHE HADN'T BEEN TAKING THEM. VITAL SIGNS STABLE. PT HAS BEEN CONTINENT. URINE DARK AND VERY FOUL SMELLING. PT ATE WELL THIS EVENING EATING SEVERAL HALF SANDWHICHES AND PUDDING CUPS. DENIES ANY SUICIDAL IDEATION. COMPLAINS OF PAIN IN HER LEGS. REPOSITIONED LEGS AND ELEVATED ON PILLOWS. PT RESTING IN BED AT THIS TIME DRINKING TEA. WILL CONTINUE TO MONITOR.
--- NOTE | 2019-03-20 07:21 | NUR ---
CALLED SCU MONITOR VERIFIED VIDEO MONITORING IS IN PLACE, LU LOVELACE
--- NOTE | 2019-03-20 16:24 | NUR ---
SHIFT SUMMARY PT CONFUSED. SPEAKS RAPIDLY. INFORMS ME THAT HE FEELS HIS IS STILL NOT RIGHT MENTALLY. SHE IS UNAWARE OF HER LIMITATIONS. SHE IS IMPULSIVE. BED ALARM IS ON. SHE DID PHONE HER AND INCORRECTLY TELL HIM SHE WAS COMING HOME TODAY. AWAITING CONSULT FROM DR. MEDEL.
--- NOTE | 2019-03-21 04:04 | NUR ---
SHIFT SUMMARY PT SLEPT OFF AND ON THROUGHOUT THE NIGHT. SHE OCCASIONALLY DEMONSTRATES IMPULSIVE BEHAVIOR BY TRYING TO GET OUT OF BED WITHOUT CALLING. BED ALARM IS ON, CALL LIGHT IS IN REACH WITH BED IN LOW POSITION.
[2019-03-21 05:07] LABS: BASOPHILS ABSOLUTE AUTO 0.03 K/mm3 (0.00-0.23); BASOPHILS PERCENT AUTO 1 % (0-2); EOSINOPHILS ABSOLUTE AUTO 0.11 K/mm3 (0.00-0.68); EOSINOPHILS PERCENT AUTO 2 % (0-6); Hematocrit 32.7 % (33.0-51.0); Hemoglobin 10.9 g/dL (11.5-16.0); IMMATURE GRAN ABSOLUTE AUTO 0.05 K/mm3 (0.00-0.10); IMMATURE GRAN PERCENT AUTO 1 % (0-1); LYMPHOCYTES ABSOLUTE AUTO 1.24 K/mm3 (0.84-5.20); LYMPHOCYTES PERCENT AUTO 22 % (21-46); MONOCYTES ABSOLUTE AUTO 0.75 K/mm3 (0.16-1.47); MONOCYTES PERCENT AUTO 13 % (4-13); Mean Corpuscular HGB 36.7 pg (26.0-34.0); Mean Corpuscular HGB Conc 33.3 g/dL (31.5-36.5); Mean Platelet Volume 9.6 fL (9.1-12.4); NEUTROPHILS ABSOLUTE AUTO 3.48 K/mm3 (1.96-9.15); NEUTROPHILS PERCENT AUTO 62 % (41-73); Platelet Count 181 K/mm3 (150-400); RDW Coefficient Variation 12.8 % (11.7-14.2); RDW Standard Deviation 52.2 fL (35.1-46.3); Red Blood Cell Count 2.97 M/mm3 (3.80-5.20); White Blood Cell Count 5.66 K/mm3 (4.00-11.30)
[2019-03-21 05:12] LABS: Mean Corpuscular Volume 110 fL (80-100)
[2019-03-21 05:30] LABS: Bun/Creatinine Ratio 23.5 (12.0-20.0); Creatinine, Blood 1.15 mg/dL (0.40-1.00); Potassium, Blood 4.6 mmol/L (3.5-5.5)
--- NOTE | 2019-03-21 16:27 | NUR ---
PATIENT IS ALERT AND ORIENTED X4. HER SPEACH IS GARBLED AT TIMES DUE TO HOW FAST SHE TALKS AND HER SOUTHERN ACCENT BUT SHE IS ABLE TO EXPRESS ANY NEEDS AND WILL USE THE CALL LIGHT. SHE HAS BEEN UP TO THE RESTROOM MULTIPLE TIMES THIS SHIFT AND REQUIRES A STANDBY TO 1 ASSIST. SHE HAS NOT HAD ANY HALLUCINATIONS OR BEEN COMBATIVE WITH THIS NURSE THIS SHIFT. HER WAS IN THE ROOM EARLIER THIS SHIFT. PATIENT COMPLAINS OF LEG PAINS, MEDICATED PER EMAR. CALL LIGHT WITH IN REACH
--- NOTE | 2019-03-22 06:37 | NUR ---
PATIENT RESTED WELL THIS SHIFT, SHE WAS ALERT AND ORIENTED AND WAS CCOOPERATIVE WITH CARE, SHE HAD ANXIETY ABOUT A PATIENT UP THE [facility] WHO KEPT WANDERING INTO HER ROOM DURING THE DAY. I ASSURED HER AND WAS ABLE TO DEFER SAID PATIENT FROM ENTERING THERE AGAIN, AND SHE FEELS A BIT BETTER THIS MORNING. SHE RECEIVED HALDOL AND TYLENOL, FOR PAIN, AND ANXIETY. SHE WAS CONTINENT TONIGHT AND GOT UP TO THE BSC WITH SBA. SHE IS CURRENTLY SITTING IN HER CHAIR.
--- NOTE | 2019-03-22 16:42 | NUR ---
NO ACUTE CHANGES TO PATIENT. SHE IS ALERT AND ABLE TO EXPRESS HER NEEDS. SHE USES THE WALKER TO AMBULATE TO RESTROOM AND REQUIRES ONE ASSIST . NO COMPLAINTS THIS SHIFT.
--- NOTE | 2019-03-23 07:33 | NUR ---
EOS: PATIENT UP OR ON GRACE VERY FREQUENTLY THRU THE NOC SHIFT. SHE WAS DRINKING ALOT OF FUIDS. ALSO GETTING OOB TO BSC FREQUENTLY. OTHER THAN THIS NO CHANGES TO REPORT.
[2019-03-23] MEDS ORDERED: VOLTAREN100 GM TOP (13:46)
[2019-03-23] MEDS ORDERED: QUET100 PO (13:47)
--- NOTE | 2019-03-23 15:14 | NUR ---
DISCHARGE PT DISCHARGED TO HOME. THIS RN EXPLAINED DISCHARGE INSTRUCTIONS AND MEDICATIONS TO PT AND PT'S FAMILY MEMBER. PT REPORTS SHE UNDERSTANDS. NEW MEDICATION ORDERS FAXED TO [facility] PER PT REQUEST. PT TRANSFERRED TO PRIVATE VEHICLE VIA WHEELCHAIR BY THIS RN. PT'S BELONINGS WITH PT.
== END 2019-03-23 14:30 | disposition home or self-care (01) | DRG 92 ==
LOC: ER 13:28 → EOR 13:29 → MEDS 13:29 → ENPENDDIS 03-23 12:44 → MEDS 03-23 14:30
PROVIDERS: Emergency Medicine; Hospitalist; ADMIT Internal Medicine
DX: G92 Toxic encephalopathy (principal); F06.2 Psychotic disorder with delusions due to known physiological condition; N39.0 Urinary tract infection, site not specified; I10 Essential (primary) hypertension; E78.00 Pure hypercholesterolemia, unspecified; Z87.891 Personal history of nicotine dependence; K21.9 Gastro-esophageal reflux disease without esophagitis; E03.9 Hypothyroidism, unspecified; I73.9 Peripheral vascular disease, unspecified; R19.5 Other fecal abnormalities; B96.20 Unspecified Escherichia coli [E. coli] as the cause of diseases classified elsewhere; Z23 Encounter for immunization
CPT/HCPCS: 36415; 80048; 80053; 81001; 81025; 82550; 84436; 84443; 85025; 87077; 87086; 87186; 90686; 96365; 96366; 96372-59; 99285-25; A9270; G0008; G0378; G0480; J0696; J1630; J1650; J7050; P9612; Q0163

== ENCOUNTER → 2019-06-05 | Outpatient (CLI) | payer MEDICARE, OTHER ==
[~2019-06-05] MED LIST changes: +Cyclobenzaprine5 MG PO; +FERRO-TIME325 MG PO; +Fish Oil 10001000 MG PO; +Potassium Chlo20 ME1 PO; +QUET100 PO; +Synthroid88 MCG PO; +URIBEL CAPSULE1 EACH PO; +VENLAFAXINE HCL75 MG PO; +VOLTAREN100 GM TOP
== END | disposition home or self-care (01) ==
LOC: LAB 19:34 → LAB SHORT 19:34
DX: N39.0 Urinary tract infection, site not specified (principal); R30.0 Dysuria
CPT/HCPCS: 87077; 87086; 87186

== ENCOUNTER → 2019-06-07 | Outpatient (CLI) | payer MEDICARE, OTHER | END | disposition home or self-care (01) | LOC: LAB 18:01 → LAB SHORT 18:01 | DX: R10.30 Lower abdominal pain, unspecified (principal); R19.09 Other intra-abdominal and pelvic swelling, mass and lump; R26.2 Difficulty in walking, not elsewhere classified; M79.89 Other specified soft tissue disorders | CPT/HCPCS: 87070; 87075; 87205 ==

== ENCOUNTER 2019-10-20 14:20 | Inpatient (IN) | payer MEDICARE, OTHER ==
[~2019-10-20] VITALS: Ht 167.6 cm; Wt 76.8 kg
[~2019-10-20 14:20] MED LIST changes: -CELE200 PO; -Cyclobenzaprine5 MG PO; -FERRO-TIME325 MG PO; -OMEP20ER PO; -Potassium Chlo20 ME1 PO; -QUET100 PO; -Synthroid88 MCG PO; -TRIM100 PO; -URIBEL CAPSULE1 EACH PO; -VENLAFAXINE HCL75 MG PO
[2019-10-20 14:56] LABS: BASOPHILS ABSOLUTE AUTO 0.02 K/mm3 (0.00-0.23); BASOPHILS PERCENT AUTO 0 % (0-2); EOSINOPHILS ABSOLUTE AUTO 0.13 K/mm3 (0.00-0.68); EOSINOPHILS PERCENT AUTO 1 % (0-6); Hematocrit 35.2 % (33.0-51.0); Hemoglobin 11.2 g/dL (11.5-16.0); IMMATURE GRAN PERCENT AUTO 1 % (0-1); LYMPHOCYTES ABSOLUTE AUTO 1.09 K/mm3 (0.84-5.20); LYMPHOCYTES PERCENT AUTO 10 % (21-46); MONOCYTES ABSOLUTE AUTO 0.67 K/mm3 (0.16-1.47); MONOCYTES PERCENT AUTO 6 % (4-13); Mean Corpuscular HGB 35.1 pg (26.0-34.0); Mean Corpuscular HGB Conc 31.8 g/dL (31.5-36.5); Mean Corpuscular Volume 110 fL (80-100); Mean Platelet Volume 9.9 fL (9.1-12.4); NEUTROPHILS ABSOLUTE AUTO 9.51 K/mm3 (1.96-9.15); NEUTROPHILS PERCENT AUTO 83 % (41-73); Platelet Count 213 K/mm3 (150-400); RDW Coefficient Variation 14.4 % (11.7-14.2); RDW Standard Deviation 58.8 fL (35.1-46.3); Red Blood Cell Count 3.19 M/mm3 (3.80-5.20); White Blood Cell Count 11.52 K/mm3 (4.00-11.30)
[2019-10-20 15:16] LABS: Albumin, Blood 2.8 g/dL (3.4-5.0); Albumin/Globulin Ratio 0.7 (0.8-1.8); Bilirubin, Total 0.5 mg/dL (0.1-1.0); Bun/Creatinine Ratio 31.2 (12.0-20.0); Calcium, Blood 8.8 mg/dL (8.5-10.1); Creatinine, Blood 1.38 mg/dL (0.40-1.00); Potassium, Blood 4.8 mmol/L (3.5-5.5); Total Protein, Blood 6.8 g/dL (6.4-8.2)
[2019-10-20] MEDS ORDERED: GABA600 PO (16:21)
[2019-10-20] MEDS ORDERED: RAMI5 PO (16:21)
[2019-10-20] MEDS ORDERED: CELE200 PO (16:22)
[2019-10-20] MEDS ORDERED: FERSU300 PO (16:22)
[2019-10-20] MEDS ORDERED: METO50ER PO (16:22)
[2019-10-20] MEDS ORDERED: Potassium Chlo20 ME1 PO (16:23)
[2019-10-20] MEDS ORDERED: VENLAFAXINE HC225 MG PO (16:23)
[2019-10-20] MEDS ORDERED: FURO20 PO (16:24)
[2019-10-20] MEDS ORDERED: LEVSOD75 PO (16:24)
[2019-10-20] MEDS ORDERED: Cyclobenzaprine5 MG PO (16:25)
[2019-10-20] MEDS ORDERED: QUET100 PO (16:25)
[2019-10-20] MEDS ORDERED: OMEP20ER PO (16:27)
[2019-10-20] MEDS ORDERED: TRIM100 PO (16:27)
[2019-10-20] MEDS ORDERED: [UNRECOGNIZED DRUG - OTHER] PO (16:29)
--- NOTE | 2019-10-20 18:56 | NUR ---
FRESH ATTENDS PLACED. MEPIPLEX APPLIED TO COCCYX AND LLE. ULCERATION NOTED TO LLE THAT PT IS SEEN AT [facility] FOR, ULCERATION TO COCCYX NOTED. PT MEDICATED WITH FENTANYL ON ARRIVAL. BRAD BRUCE AT BEDSIDE
[2019-10-21 03:56] LABS: BASOPHILS ABSOLUTE AUTO 0.02 K/mm3 (0.00-0.23); BASOPHILS PERCENT AUTO 0 % (0-2); EOSINOPHILS ABSOLUTE AUTO 0.15 K/mm3 (0.00-0.68); EOSINOPHILS PERCENT AUTO 2 % (0-6); Hematocrit 33.1 % (33.0-51.0); Hemoglobin 10.2 g/dL (11.5-16.0); IMMATURE GRAN ABSOLUTE AUTO 0.03 K/mm3 (0.00-0.10); IMMATURE GRAN PERCENT AUTO 0 % (0-1); LYMPHOCYTES ABSOLUTE AUTO 0.68 K/mm3 (0.84-5.20); LYMPHOCYTES PERCENT AUTO 9 % (21-46); MONOCYTES ABSOLUTE AUTO 0.45 K/mm3 (0.16-1.47); MONOCYTES PERCENT AUTO 6 % (4-13); Mean Corpuscular HGB 34.7 pg (26.0-34.0); Mean Corpuscular HGB Conc 30.8 g/dL (31.5-36.5); Mean Platelet Volume 9.8 fL (9.1-12.4); NEUTROPHILS ABSOLUTE AUTO 6.71 K/mm3 (1.96-9.15); NEUTROPHILS PERCENT AUTO 83 % (41-73); Platelet Count 176 K/mm3 (150-400); RDW Coefficient Variation 14.6 % (11.7-14.2); RDW Standard Deviation 60.3 fL (35.1-46.3); Red Blood Cell Count 2.94 M/mm3 (3.80-5.20); White Blood Cell Count 8.04 K/mm3 (4.00-11.30)
[2019-10-21 04:04] LABS: Mean Corpuscular Volume 113 fL (80-100)
[2019-10-21 04:15] LABS: Bun/Creatinine Ratio 27.6 (12.0-20.0); Calcium, Blood 8.3 mg/dL (8.5-10.1); Creatinine, Blood 1.63 mg/dL (0.40-1.00); Potassium, Blood 4.4 mmol/L (3.5-5.5)
--- NOTE | 2019-10-21 05:13 | NUR ---
END OF SHIFT SUMMARY PT LABILE BUT COOPERATIVE. WOUNDS NOTED TO SACRUM AND L LEG. DRESSINGS INTACT. BRUSIING NOTED TO R POSTERIOR BACK. PT EXPERIENCING SEVERE PAIN TO THIS AREA R/T RIB FX'S. SEE EMAR FOR MEDICATIONS ADMINISTERED. PT BEING TUNRED BY STAFF, PT IS ABLE TO HELP WITH THIS AT TIMES. PT BEING ENCOURAGED TO USE INCENTIVE SPIROMETER AND FLUTTER VALVE, PT STRUGGLES WITH THIS DUE TO SEVERE PAIN ASSOCIATED. PT ON 2LNC, SHALLOW BREATHING. LUNG SOUNDS RONCHI. HIPS NOTED TO CREAK WITH TURNING, PT STATES "BONE ON BONE" HIPS. PT NONIMPULSIVE THIS SHIFT. ADMISSION PACKET COMPLETED. WILL CONTINUE TO MONITOR UNTIL SHIFT CHANGE.
--- NOTE | 2019-10-21 10:01 | NUR ---
DR BENTON MADE AWARE THAT NORCO WAS GIVEN EARLY FOR SEVERE PAIN, DR BENTON IS REVIEWING MEDICATIONS AT THIS TIME FOR POSSIBLE ADJUSTMENT
--- NOTE | 2019-10-21 10:20 | NUR ---
PT REMAINS ALERT YELLING OUT OCCASIONALLY, PT REPOSITIONED AND ATTENDS INSPECTED FOR INCONENTENCE, ATTENDS ARE DRY
--- NOTE | 2019-10-21 13:35 | NUR ---
PT MEDICATED FOR PAIN. REPOSITIONED. FLUTTER VALVE AND INSINTIVE SPIROMETER USED T/O COMMERCIAL BREAK
--- NOTE | 2019-10-21 18:11 | NUR ---
SHIFT NOTE PT REPOSITIONED NUMEROUS TIMES T/O THE SHIFT BY THIS RN AND PCT OLIVE. PT WITH MODERATELY CONTROLLED PAIN, WHICH IS EASED WITH NORCO FENTANYL AND REPOSITIONING. PT HAS TOELRATED BEING ON AND OFF OF BEDPAN. PT HAS C/O MORE OF RT HIP PAIN THAN OF RT RIB PAIN. ASPERCREME AND LIDOCAINE PATCH HAVE BEEN APPLIED TO RT SIDED CHEST WALL. PICTURES OF WOUNDS HAVE BEEN PLACED IN CHART. DR BENTON BEING CALLED NOW FOR MEDICATION CHANGE FOR MORE EFFECTIVE PAIN CONTROL. PT IS ALERT ORIENTED TO PLACE AND SELF.
--- NOTE | 2019-10-22 02:12 | NUR ---
SKIN BREAKOWN THIS NURSE OBSERVED SKIN BREAKDOWN AT THE SKIN IN CONTACT WITH PT'S GLASSES. WHEN ATTEMPTING TO REMOVE GLASSES PT ASKED FOR THEM BACK ON. PT ALERTED TO THE PRESENCE OF BREAKDOWN, PT STATES SHE IS AWARE OF THIS AND STILL REQUESTS FOR GLASSES TO BE ON FOR NOW.
[2019-10-22 04:13] LABS: Albumin, Blood 2.2 g/dL (3.4-5.0); Anion Gap 6 mmol/L (6-16); Blood Urea Nitrogen 35 mg/dL (8-24); Bun/Creatinine Ratio 28.9 (12.0-20.0); CO2, Blood 24 mmol/L (21-32); Calcium, Blood 8.3 mg/dL (8.5-10.1); Chloride, Blood 108 mmol/L (98-108); Creatinine, Blood 1.21 mg/dL (0.40-1.00); Glomerular Filtration Rate 46 (60-); Glucose, Blood 111 mg/dL (70-99); Phosphorus, Blood 3.2 mg/dL (2.5-4.9); Potassium, Blood 3.9 mmol/L (3.5-5.5); Sodium, Blood 138 mmol/L (136-145)
--- NOTE | 2019-10-22 05:14 | NUR ---
END OF SHIFT SUMMARY NO ACUTE CHANGES THIS SHIFT. VSS. PAIN REMIANS DIFFICULT TO CONTROL DESPITE IV FENTANYL, ORAL PAIN MEDICATION, LIDOCAINE PATCH, ETC. LUNGS CONTINUE WITH COARSE RATTLES BUT PT HAS SHOWN IMPROVEMENT WITH COUGHING UP SECRETIONS AND HAS BEEN USING FLUTTER VALVE AND INCENT SPIROMETER THIS SHIFT. HAS BEEN INCONTINENT MULTIPLE TIMES THIS SHIFT. BEING REPOSITIONED BY STAFF. BREAKDOWN NOTED TO NOSE, SEE NOTE. WILL CONTINUE TO MONITOR UNTIL SHIFT CHANGE.
--- NOTE | 2019-10-22 07:30 | NUR ---
ASSUMED CARE: PT RESTING QUIETLY AT THIS TIME. NO ACUTE NEEDS OR CONCERNS NOTED.
--- NOTE | 2019-10-22 09:11 | NUR ---
DR BENTON CAME IN TO SEE PT AND ASSISTED WITH IS AND FLUTTER VALVE. OT AT BEDSIDE NOW. WISHES FOR PT TO GET UP OUT OF BED. SHAMPOO TECHNICIAN SUGGESTED FENTANYL PATCH, NO ORDERS AT THIS TIME DUE TO PT'S OPIOD NAIVETY PER DR BENTON.
--- NOTE | 2019-10-22 17:37 | NUR ---
SHIFT SUMMARY: PT NEEDS CONTINUAL ENCOURAGEMENT TO SIT UP IN CHAIR AND TO USE FLUTTER VALVE AND IS. MEDICATED FOR PAIN 3 TIMES THIS SHIFT. PT ON 4L O2 VIA NC. DESATS WITH ACTIVITY. CONSTANT GURGLING NOTED, COARSE BREATH SOUNDS
--- NOTE | 2019-10-22 18:14 | NUR ---
PT SITTING UPRIGHT IN CHAIR AND HER O2 DEMAND HAS INCREASED TO 6L VIA NC FROM 3L THIS AM. CALL TO DR BENTON. SEE NEW ORDERS.
[2019-10-22 18:30] LABS: PCO2 Arterial 38.2 mmHg (35-45); PO2 Arterial 67.8 mmHg (80-100); pH Blood Arterial 7.37 (7.35-7.45)
[2019-10-23 03:24] LABS: Hematocrit 30.8 % (33.0-51.0); Hemoglobin 9.5 g/dL (11.5-16.0); Mean Corpuscular HGB 34.5 pg (26.0-34.0); Mean Corpuscular HGB Conc 30.8 g/dL (31.5-36.5); Mean Corpuscular Volume 112 fL (80-100); Mean Platelet Volume 9.5 fL (9.1-12.4); Platelet Count 153 K/mm3 (150-400); RDW Coefficient Variation 13.9 % (11.7-14.2); RDW Standard Deviation 56.2 fL (35.1-46.3); Red Blood Cell Count 2.75 M/mm3 (3.80-5.20)
[2019-10-23 03:39] LABS: Albumin, Blood 2.1 g/dL (3.4-5.0); Anion Gap 5 mmol/L (6-16); Blood Urea Nitrogen 32 mg/dL (8-24); Bun/Creatinine Ratio 27.1 (12.0-20.0); CO2, Blood 26 mmol/L (21-32); Calcium, Blood 8.9 mg/dL (8.5-10.1); Chloride, Blood 106 mmol/L (98-108); Creatinine, Blood 1.18 mg/dL (0.40-1.00); Glomerular Filtration Rate 48 (60-); Glucose, Blood 108 mg/dL (70-99); Phosphorus, Blood 2.9 mg/dL (2.5-4.9); Potassium, Blood 3.9 mmol/L (3.5-5.5); Sodium, Blood 137 mmol/L (136-145)
--- NOTE | 2019-10-23 05:23 | NUR ---
END OF SHIFT SUMMARY PT CONTINUES AXOX2. LUNG SOUNDS CONTINUE TO WITH RATTLES AND COARSENESS, HAS NOT COMPLAINED OF BREATHING OR SOB THIS SHIFT. REMAINS ON 4LNC. SCHEDULED RT TREATMENTS. PT BEING ENCOURAGED AND PROMPTED TO USE IS AND FLUTTER VALVE. TOLERATES BETTER NOW THEN LAST SHEET METAL OPERATOR. BEGINNING OF SHIFT, PT UP IN CHAIR. STOOD WITH 2 STAFF AND WAS ABLE TO HOLD HER WEIGHT WELL WITH SOME ASSISTANCE AND TRANSFERRED TO BED. PAIN HAS APEARED TO BE LESS THIS SHIFT VS LAST DUE TO PT SLEEPING QUIELTY THROUGH MAJORITY OF SHIFT AND HAVING REQAUIRED LESS PAIN MEDICATION ADMINISTRATIONS. PT BEING TURNED BY STAFF, CONTINENCE CHECKS IN PLACE. WILL CONTINUE TO MONITOR UNTIL SHIFT CHANGE. VSS.
--- NOTE | 2019-10-23 07:44 | NUR ---
ASSUMED CARE AT 0700. REPORT FROM CIRILO KAPADIA. RESTING IN BED SUPINE IN AT 30 DEGREE INCLINE. DENIES NEEDS. A/A/OX3 WITH CONFUSION DUE TO UNDERLYING SCHIZOPHRENIA. BREATHING TX IN PROGRESS. L/S COARSE THROUGHOUT. WILL CONTINUE TO MONITOR.
--- NOTE | 2019-10-23 12:53 | NUR ---
Patient is is sitting up in bed and alert. Patient immediately takes my hand and holds once I tell her my name and what department I am from. Patient tells me about her falls and the terrible bruises and fractures she has. Patient tells me about her [employer] background and asks if I would pray for her. I gladly provide prayer. Patient responds well and verbalizes appreciation for the visit. I will continue to remain available to patient and family.
--- NOTE | 2019-10-23 17:51 | NUR ---
SHIFT SUMMARY; NO ACUTE CHANGES DURING SHIFT. CONTINUED TO MEDICATE FOR PAIN. UP TO CHAIR X2 DURING SHIFT. WILL CONTINUE TO MONITOR.
--- NOTE | 2019-10-24 04:34 | NUR ---
END OF SHIFT SUMMARY NO ACUTE CHANGES THIS SHIFT. PAIN CONTINUES BUT PT HAS APPEARED TO HAVE SLEPT FOR A MAJORITY OF SHIFT AND THUS HAS REQUIRED MUCH LESS PAIN MEDICATION FROM THIS RN COMPARED TO PREVIOUS SHIFTS. LUNG SOUNDS REMAIN WITH COARSE RONCHI. PT USING IS/FLUTTER WHEN ASKED/PROMPTED BY MEDICAL OFFICE WORKER. PT BEING TURNED AND ATTENDS CHANGED/SKIN CARE BY STAFF. PT HAS HAD PERIODS OF CONTINENCE HOWEVER. REMAINS ON 4LNC, SPO2 >95%. OTHERWISE, BED IN LOW POSITION. PT USING CALL LIGHT. WILL CONTINUE TO MONITOR UNTIL SHIFT CHANGE.
[2019-10-24 08:36] LABS: BASOPHILS ABSOLUTE AUTO 0.02 K/mm3 (0.00-0.23); BASOPHILS PERCENT AUTO 0 % (0-2); EOSINOPHILS ABSOLUTE AUTO 0.13 K/mm3 (0.00-0.68); EOSINOPHILS PERCENT AUTO 2 % (0-6); Hematocrit 30.8 % (33.0-51.0); Hemoglobin 9.5 g/dL (11.5-16.0); IMMATURE GRAN ABSOLUTE AUTO 0.06 K/mm3 (0.00-0.10); IMMATURE GRAN PERCENT AUTO 1 % (0-1); LYMPHOCYTES PERCENT AUTO 12 % (21-46); MONOCYTES ABSOLUTE AUTO 0.72 K/mm3 (0.16-1.47); MONOCYTES PERCENT AUTO 9 % (4-13); Mean Corpuscular HGB 34.3 pg (26.0-34.0); Mean Corpuscular HGB Conc 30.8 g/dL (31.5-36.5); Mean Corpuscular Volume 111 fL (80-100); Mean Platelet Volume 9.4 fL (9.1-12.4); NEUTROPHILS ABSOLUTE AUTO 6.25 K/mm3 (1.96-9.15); NEUTROPHILS PERCENT AUTO 77 % (41-73); Platelet Count 180 K/mm3 (150-400); RDW Coefficient Variation 13.6 % (11.7-14.2); RDW Standard Deviation 56.1 fL (35.1-46.3); Red Blood Cell Count 2.77 M/mm3 (3.80-5.20); White Blood Cell Count 8.18 K/mm3 (4.00-11.30)
[2019-10-24 08:56] LABS: Albumin, Blood 2.1 g/dL (3.4-5.0); Albumin/Globulin Ratio 0.5 (0.8-1.8); Bilirubin, Total 0.3 mg/dL (0.1-1.0); Bun/Creatinine Ratio 29.9 (12.0-20.0); Calcium, Blood 9.2 mg/dL (8.5-10.1); Creatinine, Blood 1.27 mg/dL (0.40-1.00); Potassium, Blood 4.5 mmol/L (3.5-5.5); Total Protein, Blood 6.1 g/dL (6.4-8.2)
--- NOTE | 2019-10-24 12:03 | NUR ---
Spiritual care visit conducted. Patient is sitting up in bed and alert. Patient immediately reaches for my hand. I hold patient's hand while she talks about her medical issues, her maggie and her family. Patient asks me to reposition her legs and her pillow. Patient reaches for my hand again and she asks me to pray. I gladly provide prayer. I will continue to remain available to patient and family.
--- NOTE | 2019-10-24 12:08 | NUR ---
TRANSFER SUMMARY PATIENT ALERT AND ORIENTED TO SELF, LOCATION AND TIME/DATE. PATIENT 2 PERSON ASSIT UP TO CHAIR THIS AM - TOLERATED FAIR. RESP E/U AT REST - LABORED WITH PAIN AND EXCERTION. PATIENT HAS EXTERNALLY ROTATED LEFT LEG WITH WOUNDS NOTED. PATIENT ON 3 LPM CANNULA AND CONTINUOUS BIOX IN PLACE. PATIENT REPORTS ONGOING PAIN IN RIGHT RIBS - LIDOCAINE PATCH IN PLACE AND MEDICATION PER EMAR. PATIENT IN NSR. NO ACUTE DISTRESS NOTED. REPORT GIVEN TO MEDICAL FLOOR CIRILO FRAGA. PATIENT LEFT UNIT VIA WHEELCHAIR TO ROOM 338 C/ BELONGINGS.
--- NOTE | 2019-10-24 12:49 | NUR ---
PCU TRANSFER- PT ARRIVED TO ROOM 338 VIA RECLINER FROM PCU. PT CRYING OUT IN PAIN, REPORTS 11/16 TO RIGHT RIBS AND RIGHT HIP, WILL MEDICATE PER RX. LS COARSE T/O, ON 3L N/C. CONT BIOX IN PLACE. PT VERY ANXIOUS AND CRYING OUT. PT ORIENTED TO ROOM AND CALL SYSTEM, VISITOR WITH PT AT THIS TIME.
--- NOTE | 2019-10-24 15:12 | NUR ---
REPORT TO CIRILO TRAN. PT MOVED TO ROOM 348 VIA BED. SPOUSE NOTIFIED.
--- NOTE | 2019-10-24 15:41 | NUR ---
SHIFT SUMMARY PT WAS TRANSFERRED FROM THE [facility] THIS AFTERNOON AND HER FAMILY WAS NOTIFIED OF THE TRANSFER. SHE IS A/O 3 BUT FORGETFUL. SHE IS ON 3 LPM VIA N.C. ON CONTINUOUS BIOX. THE ULCER ON HER LLE WAS CLEANSED AND A DRY DRESSING APPLIED. PT REPORTS THAT THIS IS A CHRONIC WOUND FOR WHICH SHE HAS HOME HEALTH. PT IS ABLE TO MAKE HER NEEDS KNOWN AND HAS HER CALL LIGHT IN REACH. SHE CAME TO HER NEW ROOM WITH ALL HER PERSONAL BELONGINGS.
--- NOTE | 2019-10-24 16:31 | NUR ---
Pt resting in bed upon arrival. Pt is A&O but level of understanding is questionable. Pt is easily distracted to questions and as she begins to answer questions Pt starts to discuss other topics unrelated to questions. No non verbal indicators of discomfort noted but Pt reports 5/10 pain in her left leg and 8/10 pain in her right leg. Pt reports current regimen is managing her pain. Pt's speech is difficult to understand at times. Pt currently does not report any concerns. Spoke with Bedside RN Juliano and discussed case. Pt reports same pain level even after receiving pain medication. Juliano reports Pt's pain appears managed at this time. No other concerns reported. Palliative Care will F/U for advanced care planning when family is present.
--- NOTE | 2019-10-25 04:44 | NUR ---
74 year old Female appears older than actual age continues on pain meds for acute & chronic pain. Medicated with norco 5/325 mg tabs two at HS with helpful effect. PT moans & is restless prior to pain meds then sleeping soundly on rounds. 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 Pt is a smoker using nicotine patch, lungs sounds with coarse rhonchi throughout. Wearing 2 l high flow oxygen. Minimal oral intake this shift, sips water with oral meds which she swallowed whole. Uses rx which turns urine blue. She asks to use bedpan prior to sleep, wears attends. Wound care to lt ankle ulcer chronic nonhealing. Stage 2 pressure ulcer tococcyx. coccyx.
[2019-10-25 10:27] LABS: Hematocrit 29.3 % (33.0-51.0); Hemoglobin 9.3 g/dL (11.5-16.0)
[2019-10-25 10:52] LABS: Anion Gap 5 mmol/L (6-16); Blood Urea Nitrogen 30 mg/dL (8-24); CO2, Blood 26 mmol/L (21-32); Calcium, Blood 8.9 mg/dL (8.5-10.1); Chloride, Blood 103 mmol/L (98-108); Creatinine, Blood 1.07 mg/dL (0.40-1.00); Glomerular Filtration Rate 53 (60-); Glucose, Blood 147 mg/dL (70-99); Phosphorus, Blood 2.8 mg/dL (2.5-4.9); Potassium, Blood 4.3 mmol/L (3.5-5.5); Sodium, Blood 134 mmol/L (136-145)
--- NOTE | 2019-10-25 14:12 | NUR ---
Case Conference Note: Spoke with Bedside RN Nicol and discussed case. Called and spoke with Pt's spouse Pedro Markham. Updated Pedro on plan of care and recommendations. Answered questions and discussed concerns. Engaged in therapeutic discussion regarding Advanced Care Planning. Educated Pedro on the importance of routine conversations with Pt's PCP regarding her chronic illnesses and developing multiple plans as disease process takes it coarse. Pedro appeared mildly anxious and education was kept brief. Pedro requests a phone call from hospitalist for update and possible D/C date. Pedro reports no other concerns at this time. Spoke with Dr Mayfield and relayed spouse request for a phone call. Palliative Care will remain available.
--- NOTE | 2019-10-25 16:51 | NUR ---
PATIENT PLEASANT HOWEVER VERY NEEDY FROM STAFF, CONSTANTLY CRYING OUT FOR ASSIST FOR NO APPARENT REASON. PT GOT PATIENT OUT OF BED AND SET UP IN BEDSIDE CHAIR; IT WAS ALMOST IMPOSSIBLE GETTING PATIENT BACK INTO BED WITH 2PERSON MAX ASSIST. PATIENT IS VERY CONFUSED AND FORGETFUL. SHE IS MEDICATED PER EMAR WITH MODERATE RESULT. PATIENT IN BED, WILL CONTINUE TO MONITOR AND PROVIDE CARE NEEDED.
--- NOTE | 2019-10-26 06:18 | NUR ---
SHIFT SUMMARY PATIENT WAS VERY UNCOMFORTABLE AND PAINFUL AT THE BEGINNING OF THE SHIFT, HOWEVER AFTER RECEIVING HER 2100 MEDICATIONS, SHE WAS ABLE TO SETTLE DOWN AND SLEEP WELL ALL NIGHT. IV PATENT AND FLUSHED. PATIENT CURRENTLY ON 2 LITERS O2 VIA NASAL CANULA. BED IN LOWEST POSITION WITH WHEELS LOCKED AND ALARM ON. CALL LIGHT WITHIN REACH. REPORT GIVEN TO ONCOMING RN.
--- NOTE | 2019-10-26 14:34 | NUR ---
Spiritual care visit conducted. Patient is lying in bed and alert. Patient tells me again about all her broken bones and bruises. Patient holds my hand through the entire visit. Patient tells me stories about her dad, who was a [employer] preacher in [place]. Patient talks about her current pain that seems to be on every part of her body. I provide companionship and prayer. She tells me how much she appreciates my visits and asks me to return tomorrow.
--- NOTE | 2019-10-26 15:12 | NUR ---
PATIENT CONTINUES TO WHINE T/O THE DAY. SHE COMPLAINES ON CHRONIC, CONSTANT PAIN REGARDLESS OF PAIN MANAGEMENT. PATIENT NOTED TO NEED TO VOID FREQUENTLY AND URGENTLY SO I BLADDER SCANNED HER POST VOID AND NOTED 972cc. DR LOVETT CALLED AND NOTIFIED AND ORDERS GIVEN TO PLACE A CASTANEDA AND SEND IN FOR A U/A, CULTURE IF INDICATED. CASTANEDA PLACED WITHOUT TROUBLE AND PATIENT TOLERATED PROCEDURE WELL. 800cc URINE DRAINED IMMEDIATELY WITH URINE CONTINUING TO DRAIN. PATIENTS RR IS ON THE HIGHER SIDE, HOWEVER HER OTHER VITALS SEEM STABLE. PATIENT GOT UP ONCE TO THE BED SIDE CHAIR AND ATE BREAKFAST THIS MORNING BUT BECAME QUICKLY TIRED AND ASKED TO GET BACK INTO BED. PATIENT CONTINUES TO REST IN BED. WILL CONTINUE TO MONITOR AND PROVIDE CARE NEEDED.
[2019-10-26 15:32] LABS: Source, Urine Catheter
[2019-10-26 17:02] LABS: Appearance, Urine Clear (Clear); Bilirubin, Urine Neg (Neg); Blood, Urine Neg (Neg); Glucose Qualitative, Urine Neg (Neg); Ketones, Urine Neg (Neg); Leukocyte Esterase, Urine Neg (Neg); Nitrite, Urine Neg (Neg); Specific Gravity, Urine 1.005 (1.003-1.022); Urobilinogen, Urine NORM (Normal)
[2019-10-26 17:05] LABS: Protein, Urine 1+ (Neg)
[2019-10-27 05:12] LABS: BASOPHILS ABSOLUTE AUTO 0.03 K/mm3 (0.00-0.23); BASOPHILS PERCENT AUTO 0 % (0-2); EOSINOPHILS ABSOLUTE AUTO 0.22 K/mm3 (0.00-0.68); EOSINOPHILS PERCENT AUTO 3 % (0-6); Hematocrit 31.1 % (33.0-51.0); Hemoglobin 9.9 g/dL (11.5-16.0); IMMATURE GRAN ABSOLUTE AUTO 0.29 K/mm3 (0.00-0.10); IMMATURE GRAN PERCENT AUTO 3 % (0-1); LYMPHOCYTES PERCENT AUTO 11 % (21-46); MONOCYTES ABSOLUTE AUTO 0.89 K/mm3 (0.16-1.47); MONOCYTES PERCENT AUTO 10 % (4-13); Mean Corpuscular HGB 34.7 pg (26.0-34.0); Mean Corpuscular HGB Conc 31.8 g/dL (31.5-36.5); Mean Corpuscular Volume 109 fL (80-100); Mean Platelet Volume 9.6 fL (9.1-12.4); NEUTROPHILS PERCENT AUTO 73 % (41-73); Platelet Count 232 K/mm3 (150-400); RDW Coefficient Variation 13.1 % (11.7-14.2); RDW Standard Deviation 51.8 fL (35.1-46.3); Red Blood Cell Count 2.85 M/mm3 (3.80-5.20); White Blood Cell Count 8.93 K/mm3 (4.00-11.30)
[2019-10-27 05:29] LABS: Calcium, Blood 9.4 mg/dL (8.5-10.1); Creatinine, Blood 1.25 mg/dL (0.40-1.00); Potassium, Blood 4.7 mmol/L (3.5-5.5)
--- NOTE | 2019-10-27 07:21 | NUR ---
SHIFT SUMMARY PATIENT CONFUSED OVERNIGHT, RESTLESS AND SQUIRMING IN BED DUE TO PAIN. PRN PAIN MEDICATION ADMINISTERED PER EMAR. PATIENT ABLE TO SETTLE DOWN AND SLEEP AFTER. PATIENT ON 3 LITERS OF O2 VIA NASAL CANULA. PATIENT WOULD BECOME SHORT OF BREATH WHEN ANXIOUS OR AGGITATED, OTHERWISE NO SOB NOTED. IV PATENT AND FLUSHED. BED IN LOWEST POSITION WITH WHEELS LOCKED AND ALARM ON. CALL LIGHT WITHIN REACH. REPORT GIVEN TO ONCOMING RN.
--- NOTE | 2019-10-27 16:11 | NUR ---
PATIENT A/OX4, VERY ANXIOUS AT TIMES. UP IN TO CHAIR WITH FWW, GB AND 2 MAX ASSIST. PATIENT VERY PAINFUL TODAY WITH ANY MOVEMENT AND DOES NOT TOLERATE THE CHAIR WELL. MEDICATING WITH NORCO AND FENTANYL GIVEN X1 FOR BREAKTHROUGH. PATIENT TOLERATING CARDIAC DIET. LUNGS COARSE THROUGHOUT, 3LO2 TO MAINTAIN SATS. IV TO LFA WNL AND SL. PRESSURE SORES TO L MEDIAL CHACON AND COCCYX COVERED WITH MEPILEX. PLAN IS TO DC TO A SNF. CASTANEDA REMOVED AT NOON TODAY AND PATIENT HAS NOT VOIDED YET. ORDERS TO REPLACE CASTANEDA IF PATIENT CONTINUES TO RETAIN URINE. URINE BLUE DUE TO A MEDICATION SHE IS TAKING. FALL PRECAUTIONS PER UNIT PROTOCOL.
--- NOTE | 2019-10-27 18:32 | NUR ---
CASTANEDA PULLED THIS AFTERNOON AT 1200. PATIENT HAS BEEN UNABLE TO VOID SINCE. BLADDER SCAN SHOWED 627ML'S IN BLADDER. 16F CASTANEDA REPLACED PER MD ORDER. PATIENT TOLERATED WELL.
--- NOTE | 2019-10-27 20:45 | NUR ---
PT RESTING COMFORTABLY IN BED; BED ALARM APPLIED.
--- NOTE | 2019-10-28 03:41 | NUR ---
SHIFT SUMMARY: 74 Y/O FEMALE HAD RESTLESS NIGHT AT TIMES; PT ALERT TO PERSON ONLY; PTS LUNG SOUNDS ARE COARSE THROUGHOUT WITH OCCASIONAL NON PRODUCTIVE COUGH NOTED; PT C/O GENERALIZED PAIN RATED 9/10 WITH NORCO 5/325MG PO GIVEN TWICE WITH MODERATE RELIEF FELT; PT REPOSITIONED FREQUENTLY BY STAFF; CASTANEDA DRAINING LARGE AMOUNTS LIGHT BLUE URINE; WEARING O2 AT 2L/M PER NASAL CANNULA; BED ALARM APPLIED, BED LOW POSITION WITH CALL LIGHT AT SIDE.
--- NOTE | 2019-10-28 18:13 | NUR ---
PATIENT A/OX4, UP WITH 2 MAX ASSIST TO CHAIR/BSC. VSS, CONTINUES ON 3LO2 VIA NC. REPORTS SEVERE PAIN TO R HIP AND R RIB. MEDICATING WITH NORCO WITH GOOD RELIEF. TOLERATING CARDIAC DIET. TAKES PILLS WHOLE WITH WATER. 2 LASRGE SOFT BM'S TODAY. STOOL SOFTNERS HELD AT PATIENT REQUEST. PATIENT COOPERATIVE WITH CARE, CAN BE ANXIOUS AT TIMES. CALLS APPROPRIATELY FOR ASSISTANCE.
--- NOTE | 2019-10-29 04:36 | NUR ---
SHIFT SUMMARY PT HAS HAD NO ACUTE CHANGES THIS SHIFT, MEDICATED FOR PAIN X1 (12/17, R HIP & RIBS), PT SLEPT AFTER ADMIN & T/O THE NIGHT NO OTHER C/O ANY KIND. PT ABLE TO MAKE NEEDS KNOWN, CALL LIGHT IN REACH, WILL CONT TO MONITOR UNTIL REPORT GIVEN TO DAY RN.
[2019-10-29 05:49] LABS: Hematocrit 28.5 % (33.0-51.0); Hemoglobin 9.1 g/dL (11.5-16.0); Mean Corpuscular HGB 35.1 pg (26.0-34.0); Mean Corpuscular HGB Conc 31.9 g/dL (31.5-36.5); Mean Corpuscular Volume 110 fL (80-100); Mean Platelet Volume 9.6 fL (9.1-12.4); Platelet Count 243 K/mm3 (150-400); RDW Coefficient Variation 13.1 % (11.7-14.2); RDW Standard Deviation 52.4 fL (35.1-46.3); Red Blood Cell Count 2.59 M/mm3 (3.80-5.20); White Blood Cell Count 7.91 K/mm3 (4.00-11.30)
[2019-10-29 06:04] LABS: Bun/Creatinine Ratio 24.1 (12.0-20.0); Calcium, Blood 9.7 mg/dL (8.5-10.1); Creatinine, Blood 1.12 mg/dL (0.40-1.00); Potassium, Blood 4.9 mmol/L (3.5-5.5)
[2019-10-29 06:22] LABS: BAND PERCENT MAN 2 % (0-8); BASOPHILS PERCENT MAN 0 % (0-2); EOSINOPHILS ABSOLUTE MAN 0.07 K/mm3 (0.00-0.68); EOSINOPHILS PERCENT MAN 1 % (0-6); LYMPHOCYTES ABSOLUTE MAN 1.26 K/mm3 (0.84-5.20); LYMPHOCYTES PERCENT MAN 16 % (21-46); MONOCYTES ABSOLUTE MAN 1.02 K/mm3 (0.16-1.47); MONOCYTES PERCENT MAN 13 % (4-13); MYELOCYTE ABSOLUTE MAN 0.15 K/mm3 (0.00-0.00); MYELOCYTE PERCENT MAN 2 % (0-0); NEUTROPHILS ABSOLUTE MAN 5.37 K/mm3 (1.96-9.15); SEG NEUTROPHILS PERCENT MAN 66 % (41-73); TOTAL CELLS COUNTED 100
--- NOTE | 2019-10-29 17:40 | NUR ---
PATIENT A/OX4, UP WITH FWW, GB AND 2 ASSIST TO CHAIR. PATIENT NEEDS ENCOURAGEMENT TO GET OOB. REPORTS SEVERE PAIN TO R HIP AND RIBS. MEDICATING WITH NORCO TO TREAT. CASTNAEDA PULLED THIS AFTERNOON AND PATIENT WAS ABLE TO VOID 950ML'S. MEPILEX REPLACED TO COCCYX AND DAILY DRESSING CHANGE TO L ANKLE WOUND WAS DONE EARLY THIS AM. PATIENT IS CALM AND COOPERATIVE WITH CARE. TOLERATING CARDIAC DIET. TAKES PILLS WHOLE WITH WATER. PLAN IS TO DC TO A SNF. PATIENT REFUSING SCD'S. LUNGS COARSE THROUGHOUT, SCHEDULED RT TX'S, 3LO2 TO MAINTAIN SATS. ABX COARSE COMPLETED. 20G IV TO L FA WNL AND SL.
--- NOTE | 2019-10-30 04:12 | NUR ---
SUMMARY: A/OX4, CALLS APPROPRIATELY AND SPECIFIES NEEDS. SHE'S 2P ASSIST OOB W/FWW AND GAIT BELT. PT PREFERS TO USE BEDPAN AT NIGHT AND LACKS MOTIVATION PERTAINING TO ADL'S BUT MOBILITY AND AMBULATION ENCOURAGED. SHE AGREED THAT GETTING UP ON DAY SHIFT HELPS W/STRENGTH, BREATHING AND PAIN. PT REMAINS ON 3L O2 W/COARSE LS AND PRODUCTIVE COUGH. I/S AND FLUTTER ENCOURAGED WA. PT CAN BE CONTANKEROUS W/ CARE AND FREQ REPOSITIONING ATTENDED TO. MEPILEX TO BUTTOCK AND L.ANKLE REMAIN C/D/I. SEE PHOTOS FOR DETAILS. SHE'S ANXIOUS AT TIMES RE: R.HIP AND RIB PAIN, NORCO AND FENTANYL RECIEVED PRN FOR TOLERABLE CONTROL. PT REFUSED BOWEL MEDS AND SCD'S. VSS/AFEBRILE AND NO ACUTE CHANGES. SNF PLACEMENT PENDING. WCTM AND REPORT TO DAY RN.
[2019-10-30] MEDS ORDERED: Acetaminophen650 M1 PO (15:48)
[2019-10-30] MEDS ORDERED: DOCU100 PO (15:49)
[2019-10-30] MEDS ORDERED: ALBU90OI INH (15:49)
[2019-10-30] MEDS ORDERED: FENTANYL1 EAC9 TOP (15:51)
[2019-10-30] MEDS ORDERED: Norco 5-325 Ta1 EACH PO (15:52)
[2019-10-30] MEDS ORDERED: IPRAT-ALBUT 0.5-3 ML INH (15:55)
[2019-10-30] MEDS ORDERED: PROBIOTIC1 EAC7 PO (15:56)
[2019-10-30] MEDS ORDERED: Nicoderm Cq1 EAC1 TOP (15:57)
[2019-10-30] MEDS ORDERED: LIDOCAINE1 EAC1 TOP (15:57)
[2019-10-30] MEDS ORDERED: ONDA4ODT MM (15:58)
[2019-10-30] MEDS ORDERED: SENN187 PO (15:58)
[2019-10-30] MEDS ORDERED: ALCIS59.15 ML TOP (15:59)
[2019-10-30] MEDS ORDERED: ZINC OXIDE57 GM TOP (16:00)
--- NOTE | 2019-10-30 18:11 | NUR ---
LATE ENTRY FOR [address] [facility] AT 1742. PT TRANSFERRED TO WHEELCHAIR FROM BED. IV DC'D IN TACT. HARD COPY OF PRESCRIPTION WELL HOME PRESCRIPTION SENT WITH PT. CALLED REPORT TO PETE AT 1630.
== END 2019-10-30 17:42 | DRG 183 ==
LOC: ER 14:20 → PCU 14:21 → MEDS 10-21 08:29 → PCU 10-21 08:29 → MEDS 10-24 12:25
PROVIDERS: Emergency Medicine; Family Medicine; Internal Medicine; Nurse Practitioner Acute Care; ADMIT Internal Medicine
DX: S22.41XA Multiple fractures of ribs, right side, initial encounter for closed fracture (principal); J18.9 Pneumonia, unspecified organism; J96.01 Acute respiratory failure with hypoxia; J98.11 Atelectasis; J90 Pleural effusion, not elsewhere classified; N39.0 Urinary tract infection, site not specified; W18.30XA Fall on same level, unspecified, initial encounter; Y92.9 Unspecified place or not applicable; F20.9 Schizophrenia, unspecified; E78.00 Pure hypercholesterolemia, unspecified; L89.152 Pressure ulcer of sacral region, stage 2; N18.3 Chronic kidney disease, stage 3 (moderate); F17.210 Nicotine dependence, cigarettes, uncomplicated; I12.9 Hypertensive chronic kidney disease with stage 1 through stage 4 chronic kidney disease, or unspecified chronic kidney disease; K21.9 Gastro-esophageal reflux disease without esophagitis; F32.9 Major depressive disorder, single episode, unspecified; M16.10 Unilateral primary osteoarthritis, unspecified hip; R39.15 Urgency of urination; M16.0 Bilateral primary osteoarthritis of hip
CPT/HCPCS: 36415; 36600; 71045; 71046; 80048; 80053; 80069; 82803; 82947; 84145; 85014; 85018; 85025; 85027; 93005; 93010; 94640; 94667; 94668; 94760; 94762; 96361; 96374; 96375; 96376; 97110; 97163; 97166; 97530; 97535; 99285-25; A9270; A9270-GY; G0378; J0696; J2405; J3010; J7030; J7050; U0002

== ENCOUNTER 2020-07-25 09:55 | Emergency (ER) | payer MEDICARE, OTHER ==
[~2020-07-25] VITALS: Ht 165.1 cm; Wt 72.6 kg
[~2020-07-25 09:55] MED LIST changes: +ALBU90OI INH; +ALCIS59.15 ML TOP; +ALPR1 PO; +ASCORBIC ACID500 MG PO; +ASPERCREME1 EACH TOP; +Acetaminophen650 M1 PO; +BISA10S PR; +CELE200 PO; +CELECOXIB200 MG PO; +Colace100 MG PO; +Cran-Max500 MG PO; +FENTANYL1 EAC9 TOP; +Feverall650 MG PR; +IPRAT-ALBUT 0.5-3 ML INH; +LIDOCAINE1 EAC1 TOP; +MILK OF MA400 MG/51 PO; +Nicoderm Cq1 EAC1 TOP; +Norco 5-325 Ta1 EACH PO; +ONDA4ODT MM; +PROBIOTIC1 EA13 PO; +PROBIOTIC1 EAC7 PO; +PURE & GENTLE133 ML PR; +QUET100 PO; +SENN187 PO; +SSKI PO; +TRAM50 PO; +TRIM100 PO; +URIBEL PO; +Vitamin B-12100 MCG PO; +Vitamin D2000 UNIT PO; +ZINC OXIDE57 GM TOP; +[UNRECOGNIZED DRUG - OTHER] PO
[2020-07-25 10:32] LABS: BASOPHILS ABSOLUTE AUTO 0.02 K/mm3 (0.00-0.23); BASOPHILS PERCENT AUTO 0 % (0-2); Hematocrit 27.4 % (33.0-51.0); Hemoglobin 8.9 g/dL (11.5-16.0); LYMPHOCYTES ABSOLUTE AUTO 0.31 K/mm3 (0.84-5.20); LYMPHOCYTES PERCENT AUTO 4 % (21-46); MONOCYTES ABSOLUTE AUTO 0.56 K/mm3 (0.16-1.47); MONOCYTES PERCENT AUTO 7 % (4-13); Mean Corpuscular HGB 34.9 pg (26.0-34.0); Mean Corpuscular HGB Conc 32.5 g/dL (31.5-36.5); Mean Corpuscular Volume 108 fL (80-100); Mean Platelet Volume 9.8 fL (9.1-12.4); Platelet Count 135 K/mm3 (150-400); RDW Coefficient Variation 13.5 % (11.7-14.2); RDW Standard Deviation 54.3 fL (35.1-46.3); Red Blood Cell Count 2.55 M/mm3 (3.80-5.20); White Blood Cell Count 7.82 K/mm3 (4.00-11.30)
[2020-07-25 10:35] LABS: EOSINOPHILS ABSOLUTE AUTO 0.01 K/mm3 (0.00-0.68); EOSINOPHILS PERCENT AUTO 0 % (0-6); IMMATURE GRAN ABSOLUTE AUTO 0.17 K/mm3 (0.00-0.10); IMMATURE GRAN PERCENT AUTO 2 % (0-1); NEUTROPHILS ABSOLUTE AUTO 6.75 K/mm3 (1.96-9.15); NEUTROPHILS PERCENT AUTO 86 % (41-73)
[2020-07-25 10:54] LABS: Alanine Aminotransfer (ALT/SGP 68 U/L (12-78); Albumin, Blood 1.7 g/dL (3.4-5.0); Albumin/Globulin Ratio 0.5 (0.8-1.8); Alk Phos 402 U/L (50-136); Anion Gap 9 mmol/L (6-16); Aspartate Aminotrans (AST/SGOT 111 U/L (12-37); Bilirubin, Total 2.2 mg/dL (0.1-1.0); Blood Urea Nitrogen 22 mg/dL (8-24); Bun/Creatinine Ratio 12.2 (12.0-20.0); CO2, Blood 17 mmol/L (21-32); Calcium, Blood 7.9 mg/dL (8.5-10.1); Chloride, Blood 112 mmol/L (98-108); Creatinine, Blood 1.81 mg/dL (0.40-1.00); Globulin, Blood 3.1 g/dL (2.2-4.0); Glomerular Filtration Rate 29 (60-); Glucose, Blood 61 mg/dL (70-99); Potassium, Blood 4.4 mmol/L (3.5-5.5); Sodium, Blood 138 mmol/L (136-145); Total Protein, Blood 4.8 g/dL (6.4-8.2); Troponin I <0.015 ng/mL (0.000-0.040)
[2020-07-25 11:09] LABS: Source, Urine Catheter
[2020-07-25 11:12] LABS: Influenza A, PCR NEGATIVE (NEGATIVE); Influenza B, PCR NEGATIVE (NEGATIVE); Resp Syncytial Virus, PCR NEGATIVE (NEGATIVE); SARS-Cov-2 (COVID-19) PCR, MMC NEGATIVE (NEGATIVE)
[2020-07-25 11:16] LABS: Appearance, Urine Clear (Clear); Bilirubin, Urine Neg (Neg); Blood, Urine 2+ (Neg); Glucose Qualitative, Urine Neg (Neg); Ketones, Urine Neg (Neg); Leukocyte Esterase, Urine 2+ (Neg); Nitrite, Urine Pos (Neg); Protein, Urine 2+ (Neg); Urobilinogen, Urine NORM (Normal); pH, Urine 6.5 (5.0-8.0)
[2020-07-25 11:40] LABS: Bacteria Many /hpf; Red Blood Cells, Urine 0-2 /hpf (0-2); Squamous Epithelial Cells Not Seen /hpf (Few)
[2020-07-25] MEDS ORDERED: RAMI5 PO (12:36)
[2020-07-25] MEDS ORDERED: CYCLOBENZAPRINE5 MG PO (12:36)
[2020-07-25] MEDS ORDERED: FURO20 PO (12:37)
[2020-07-25] MEDS ORDERED: GABA600 PO (12:37)
[2020-07-25] MEDS ORDERED: URIBEL PO (12:38)
[2020-07-25] MEDS ORDERED: LEVSOD75 PO (12:39)
[2020-07-25] MEDS ORDERED: VENLAFAXINE HC225 MG PO (12:39)
[2020-07-25] MEDS ORDERED: QUET100 PO (12:39)
[2020-07-25] MEDS ORDERED: K-Dur 20 meq T20 MEQ PO (12:40)
[2020-07-25] MEDS ORDERED: METO50 PO (12:40)
[2020-07-25] MEDS ORDERED: CELEBREX200 MG PO (12:41)
[2020-07-25] MEDS ORDERED: TRIM100 PO (12:42)
[2020-07-25] MEDS ORDERED: FERSU300 PO (12:42)
[2020-07-25] MEDS ORDERED: OMEP20ER PO (12:43)
[2020-07-25 13:11] LABS: U Amphetamine Screen Not Detected; U Barbituate Screen Not Detected; U Benzodiazapine Screen Not Detected; U Buprenorphine Screen Not Detected; U Cannabinoids Screen Not Detected; U Cocaine Screen Not Detected; U Methadone Screen Not Detected; U Methamphetamine Screen Not Detected; U Opiates Screen Not Detected; U Oxycodone Screen Not Detected; U Phencyclidine Screen Not Detected; U Propoxyphene Screen Not Detected
--- NOTE | 2020-07-25 15:18 | NUR ---
echocardiogram complete
== END 2020-07-25 16:10 | disposition short-term general hospital (02) ==
LOC: ER 09:55 → ICUW 12:31 → ER 12:31 → ICUW 16:09 → ER 16:10
PROVIDERS: Emergency Medicine; Nurse Practitioner Acute Care
PROC: 02HV33Z Insertion of Infusion Device into Superior Vena Cava, Percutaneous Approach (ICD-10-PCS; principal; 2020-07-25)
PROC: B548ZZA Ultrasonography of Superior Vena Cava, Guidance (ICD-10-PCS; 2020-07-25)
PROC: 3E033XZ Introduction of Vasopressor into Peripheral Vein, Percutaneous Approach (ICD-10-PCS; 2020-07-25)
DX: A41.9 Sepsis, unspecified organism (principal); R65.21 Severe sepsis with septic shock; J18.9 Pneumonia, unspecified organism; J96.01 Acute respiratory failure with hypoxia; G92 Toxic encephalopathy; I50.22 Chronic systolic (congestive) heart failure; I13.0 Hypertensive heart and chronic kidney disease with heart failure and stage 1 through stage 4 chronic kidney disease, or unspecified chronic kidney disease; N17.9 Acute kidney failure, unspecified; E11.649 Type 2 diabetes mellitus with hypoglycemia without coma; E78.5 Hyperlipidemia, unspecified; Z20.822 Contact with and (suspected) exposure to COVID-19; E11.51 Type 2 diabetes mellitus with diabetic peripheral angiopathy without gangrene; N18.30 Chronic kidney disease, stage 3 unspecified; G43.909 Migraine, unspecified, not intractable, without status migrainosus; F41.9 Anxiety disorder, unspecified; F32.9 Major depressive disorder, single episode, unspecified; K21.9 Gastro-esophageal reflux disease without esophagitis; M19.90 Unspecified osteoarthritis, unspecified site; D63.1 Anemia in chronic kidney disease; R17 Unspecified jaundice; R74.8 Abnormal levels of other serum enzymes; K83.8 Other specified diseases of biliary tract; E03.9 Hypothyroidism, unspecified; Z86.718 Personal history of other venous thrombosis and embolism; Z79.899 Other long term (current) drug therapy; Z88.5 Allergy status to narcotic agent; Z91.040 Latex allergy status; Z88.8 Allergy status to other drugs, medicaments and biological substances; Z87.891 Personal history of nicotine dependence
CPT/HCPCS: 0241U; 36415; 36556; 71045; 76705; 80053; 81001; 82140; 82272; 82947; 83605; 83880; 84484; 85025; 87040; 87077; 87086; 87186; 93005; 93010; 93306; 96361-59; 96365-59; 96367-59; 96375-59; 99285-25; C1751; J0456; J0696; J7030; J7050; J7060